=== PATIENT | female | born 1955 | race Caucasian/White ===

== ENCOUNTER 2021-07-07 18:59 | Emergency (ER) | payer MEDICARE, SELFPAY ==
[2021-07-07] VITALS (12 sets, daily range): BP systolic 139–193; BP diastolic 68–86; PULSE 80–115; RESP 15–34; TEMP 37; O2SAT 78–98; BMI 32.8
[2021-07-07 19:26] LABS: Add Manual Diff / Slide Review NO; Basophils Absolute Auto 100 /uL (0-100); Basophils Percent Auto 0.7 % (0-2); Eosinophils Absolute Auto 0 /uL (0-450); Eosinophils Percent Auto 0.3 % (2-4); Hematocrit 45.5 % (36-46); Hemoglobin 15.7 g/dL (12.0-16.0); Lymphocytes Absolute Auto 900 /uL (1100-4500); Lymphocytes Percent Auto 6.6 % (25-40); Mean Corpuscular HGB Conc 34.4 % (30-36); Mean Corpuscular Hemoglobin 30.7 PG (26-34); Mean Corpuscular Volume 89.1 fL (80-100); Monocytes Absolute Auto 600 /uL (0-900); Monocytes Percent Auto 4.3 % (3-14); Neutrophils Absolute Auto 11900 /uL (1500-7000); Neutrophils Percent Auto 88.1 % (50-75); Platelet Count 239 X10^3/uL (150-400); Red Blood Cell Count 5.11 X10^6/uL (4.0-5.2); Red Cell Distribution Width 13.1 % (11.6-14.8); White Blood Cell Count 13.5 X10^3/uL (4.5-11.0)
[2021-07-07] MEDS: ONDANSETRON 4 MG/2 ML INJ IV (19:38)
[2021-07-07] MEDS: SODIUM CHLORIDE 0.9% 1,000 ML 1000 ML IV ×2 (19:38→22:41)
[2021-07-07] MEDS: PANTOPRAZOLE 40 MG VIAL IV (19:40)
--- NOTE | 2021-07-07 19:41 | ED.ABDPAIN ---
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 She says it started around 3:00 a.m. but has progressively gotten worse. She is actively vomiting. She denies fever or chills. She denies any chest pain or palpitations no shortness of breath. Quite tender in her abdomen. Pain Consistency: constant Location: diffuse and RUQ Severity: severe Quality: sharp Relieving factors: nothing Related Data Allergies Allergy/AdvReac Type Severity Reaction Status Date / Time No Known Drug Allergies Allergy Verified 07/07/21 19:13 Review of Systems Review of Systems Narrative: GENERAL: Denies chills, fatigue, malaise, fever, sweats, travel HEENT: Denies sinus pain, ear pain, sore throat, difficulty swallowing, neck pain RESPIRATORY: Denies dyspnea, cough, wheezing, hemoptysis, sputum. CARDIOVASCULAR: Denies chest pain, palpitations, orthopnea, edema GASTROINTESTINAL: See HPI : Denies dysuria, frequency, incontinence, hematuria, urinary retention, flank pain. MUSCULOSKELETAL: Denies weakness, joint pain, or bony pain SKIN: No rash, no erythema, no pruritus NEUROLOGIC: Denies weakness, dizziness, headache, numbness, change in speech, confusion PSYCHIATRIC: No concerning psychosocial issues. 12 point review of systems is negative except for those stated above and HPI Patient History Social History Smoking Status: Never smoker Smoking Status: Never smoker Substance Use Type: does not use Exam Initial Vital Signs Initial Vital Signs: Vital Signs Temperature 98.6 F 07/07/21 19:05 Pulse Rate 80 07/07/21 19:05 Respiratory Rate 15 07/07/21 19:05 Blood Pressure 190/86 H 07/07/21 19:05 Pulse Oximetry 97 07/07/21 19:05 GENERAL: Alert 66-year-old female who is actively vomiting multiple times HEENT: Head atraumatic,EOMI, pupils reactive, face symmetric, moist mucous membranes CARDIOVASCULAR: Regular rate and rhythm without murmurs, rubs or gallops. RESPIRATORY: Breath sounds equal bilaterally, no wheezes rales or rhonchi. ABDOMEN: Soft, tender epigastric area and right upper quadrant area no guarding or rebound : No CVA tenderness EXTREMITIES: Normal range of motion, no clubbing or edema. Neurovascularly intact NEUROLOGICAL: Alert and oriented x4.Normal gait and speech. Course Orders Ordered: ED Orders 07/07/21 19:13 EKG-12 Lead Stat 07/07/21 19:19 Complete Blood Count AUTO DIFF Stat Comprehensive Metabolic Panel Stat Ketones (Beta-Hydroxybutyrate) Stat Lactate (Lactic Acid) Stat Lipase Stat 07/07/21 19:49 Urine Culture Stat Urine Microscopic Stat 07/07/21 19:59 CT abdomen pelvis w con Stat 07/07/21 20:00 US abdomen limited Stat 07/07/21 23:15 COVID19 -Nasal swab/Pre-Proc Stat 07/07/21 23:40 Blood Culture Stat Comprehensive Metabolic Panel Stat Lactate (Lactic Acid) Stat Procalcitonin Stat 07/08/21 EKG-12 Lead Routine Discontinued Medications Hydromorphone HCl (Hydromorphone 0.5 Mg Inj) 0.5 mg IV NOW ONE Stop: 07/07/21 22:22 Last Admin: 07/07/21 22:41 Dose: Not Given Documented by: KGALLAG Sodium Chloride (Normal Saline 0.9%) 1,000 mls @ 1,000 mls/hr IV BOLUS ONE Stop: 07/07/21 20:26 Last Infusion: 07/07/21 22:46 Dose: 0 mls/hr Documented by: Admin: 07/07/21 19:38 Dose: 1,000 mls/hr Documented by: FREDYOTEM Sodium Chloride (Normal Saline 0.9%) 1,000 mls @ 1,000 mls/hr IV BOLUS ONE Stop: 07/07/21 23:18 Last Infusion: 07/08/21 00:19 Dose: 0 mls/hr Documented by: Admin: 07/07/21 22:41 Dose: 1,000 mls/hr Documented by: KGALLAG Piperacillin Sod/Tazobactam (Sod 4.5 gm/ Sodium Chloride) 100 mls @ 200 mls/hr IV NOW ONE Stop: 07/07/21 22:20 Last Infusion: 07/07/21 23:28 Dose: 0 mls/hr Documented by: Admin: 07/07/21 22:41 Dose: 200 mls/hr Documented by: CEZAR Sodium Chloride (Normal Saline 0.9%) 1,000 mls @ 1,000 mls/hr IV BOLUS ONE Stop: 07/07/21 23:28 Last Admin: 07/07/21 22:45 Dose: Not Given Documented by: CEZAR Lactated Ringer's (Lactated Ringers) 1,000 mls @ 250 mls/hr IV CONT NEIL Last Infusion: 07/08/21 02:18 Dose: 0 mls/hr Documented by: Admin: 07/08/21 00:18 Dose: 250 mls/hr Documented by: CEZAR Ketorolac Tromethamine (Ketorolac 30 Mg/Ml Vial) 15 mg IV NOW ONE Stop: 07/08/21 00:26 Last Admin: 07/08/21 00:29 Dose: 15 mg Documented by: CEZAR Morphine Sulfate (Morphine 2 Mg/Ml Inj) 2 mg IV NOW ONE Stop: 07/07/21 19:59 Last Admin: 07/07/21 20:04 Dose: 2 mg Documented by: CEZAR Morphine Sulfate (Morphine 2 Mg/Ml Inj) 2 mg IV NOW ONE Stop: 07/07/21 22:30 Last Admin: 07/07/21 22:40 Dose: 2 mg Documented by: CEZAR Ondansetron HCl (Ondansetron 4 Mg/2 Ml Inj) 4 mg IV NOW ONE Stop: 07/07/21 19:28 Last Admin: 07/07/21 19:38 Dose: 4 mg Documented by: ARIES Pantoprazole Sodium (Pantoprazole 40 Mg Vial) 40 mg IV NOW ONE Stop: 07/07/21 19:28 Last Admin: 07/07/21 19:40 Dose: 40 mg Documented by: CEZAR Vital Signs Vital signs: Vital Signs - 8 hr 07/07/21 19:05 07/07/21 20:05 07/07/21 20:10 Temperature 98.6 F Pulse Rate 80 97 H 97 H Respiratory Rate 15 18 22 Blood Pressure 190/86 H 180/78 H Pulse Oximetry 97 98 78 L 07/07/21 20:30 07/07/21 20:32 07/07/21 21:00 Temperature Pulse Rate 102 H 101 H 102 H Respiratory Rate 26 H 29 H Blood Pressure 139/78 154/68 H Pulse Oximetry 95 95 95 07/07/21 21:30 07/07/21 22:00 07/07/21 22:30 Temperature Pulse Rate 109 H 109 H 115 H Respiratory Rate 26 H 31 H 34 H Blood Pressure 171/75 H 193/79 H 185/76 H Pulse Oximetry 95 93 91 07/07/21 23:00 07/07/21 23:20 07/07/21 23:30 Temperature Pulse Rate 114 H 115 H Respiratory Rate 34 H 33 H Blood Pressure 188/76 H 185/79 H Pulse Oximetry 93 88 L 95 07/08/21 00:00 07/08/21 00:29 07/08/21 00:30 Temperature 101.3 F H Pulse Rate 126 H 114 H Respiratory Rate 31 H 33 H Blood Pressure 194/93 H 180/80 H Pulse Oximetry 96 95 07/08/21 01:00 07/08/21 01:30 07/08/21 01:38 Temperature 100.8 F H 99.8 F H Pulse Rate 123 H 122 H Respiratory Rate 29 H 27 H Blood Pressure 154/65 H 142/65 H Pulse Oximetry 94 93 07/08/21 02:00 Temperature Pulse Rate 118 H Respiratory Rate 24 Blood Pressure 131/60 Pulse Oximetry 92 MDM - Abdominal Pain Lab Data Result diagrams: 07/07/21 19:19 07/07/21 23:40 Labs: Lab Results 07/07/21 07/07/21 07/07/21 Range/Units 19:19 19:19 19:19 WBC 13.5 H (4.5-11.0) X10^3/uL RBC 5.11 (4.0-5.2) X10^6/uL Hgb 15.7 (12.0-16.0) g/dL Hct 45.5 (36-46) % MCV 89.1 (80-100) fL MCH 30.7 (26-34) PG MCHC 34.4 (30-36) % RDW 13.1 (11.6-14.8) % Plt Count 239 (150-400) X10^3/uL Neut % (Auto) 88.1 H (50-75) % Lymph % (Auto) 6.6 L (25-40) % [place] % (Auto) 4.3 (3-14) % Eos % (Auto) 0.3 L (2-4) % Baso % (Auto) 0.7 (0-2) % Neut # (Auto) 17720 H (2794-0655) /uL Lymph # (Auto) 900 L (7300-9354) /uL [place] # (Auto) 600 (0-900) /uL Eos # (Auto) 0 (0-450) /uL Baso # (Auto) 100 (0-100) /uL Sodium 137 (137-145) mmol/L Potassium 4.3 (3.4-5.1) mmol/L Chloride 99 (98-107) mmol/L Carbon Dioxide 29 (22-32) mmol/L BUN 11 (7-17) mg/dL Creatinine 0.77 (0.52-1.04) mg/dL Estimated GFR > 60.0 (>60) mL/min BUN/Creatinine Ratio 14.3 (6-22) Glucose 210 H (80-110) mg/dL Lactate 1.5 (0.7-2.1) mmol/L Calcium 9.8 (8.4-10.2) mg/dL Total Bilirubin 2.1 H (0.2-1.3) mg/dL AST 356 H (14-36) IU/L ALT 202 H (<35) IU/L Alkaline Phosphatase 324 H (38-126) U/L Total Protein 8.9 H (6.3-8.2) g/dL Albumin 4.7 (3.5-5.0) g/dL Globulin 4.2 H (1.7-4.1) g/dL Albumin/Globulin Ratio 1.1 (1.0-2.8) Lipase 149 (23-300) U/L Procalcitonin (<0.5) ng/mL Urine RBC (0-5/HPF) Urine WBC (0-5/HPF) Ur Squamous Epith Cells (0-5/HPF) Ur Transition Epith Cell (0-5/HPF) Urine Bacteria (None) Ur Culture Indicated? Micro UA Comment Ketones (<0.27) mmol/L SARS-CoV-2 (PCR) (Negative) 07/07/21 07/07/21 07/07/21 Range/Units 19:19 19:49 23:15 WBC (4.5-11.0) X10^3/uL RBC (4.0-5.2) X10^6/uL Hgb (12.0-16.0) g/dL Hct (36-46) % MCV (80-100) fL MCH (26-34) PG MCHC (30-36) % RDW (11.6-14.8) % Plt Count (150-400) X10^3/uL Neut % (Auto) (50-75) % Lymph % (Auto) (25-40) % [place] % (Auto) (3-14) % Eos % (Auto) (2-4) % Baso % (Auto) (0-2) % Neut # (Auto) (3952-1933) /uL Lymph # (Auto) (7993-9035) /uL [place] # (Auto) (0-900) /uL Eos # (Auto) (0-450) /uL Baso # (Auto) (0-100) /uL Sodium (137-145) mmol/L Potassium (3.4-5.1) mmol/L Chloride (98-107) mmol/L Carbon Dioxide (22-32) mmol/L BUN (7-17) mg/dL Creatinine (0.52-1.04) mg/dL Estimated GFR (>60) mL/min BUN/Creatinine Ratio (6-22) Glucose (80-110) mg/dL Lactate (0.7-2.1) mmol/L Calcium (8.4-10.2) mg/dL Total Bilirubin (0.2-1.3) mg/dL AST (14-36) IU/L ALT (<35) IU/L Alkaline Phosphatase (38-126) U/L Total Protein (6.3-8.2) g/dL Albumin (3.5-5.0) g/dL Globulin (1.7-4.1) g/dL Albumin/Globulin Ratio (1.0-2.8) Lipase (23-300) U/L Procalcitonin (<0.5) ng/mL Urine RBC 0-1/hpf (0-5/HPF) Urine WBC 10-30/hpf H (0-5/HPF) Ur Squamous Epith Cells 1-5 /hpf (0-5/HPF) Ur Transition Epith Cell 5-10/hpf H (0-5/HPF) Urine Bacteria Many (>30) H (None) Ur Culture Indicated? Culture not indicate Micro UA Comment Cx ordered by Ketones 0.91 H (<0.27) mmol/L SARS-CoV-2 (PCR) Negative (Negative) 07/07/21 07/07/21 07/07/21 Range/Units 23:40 23:40 23:40 WBC (4.5-11.0) X10^3/uL RBC (4.0-5.2) X10^6/uL Hgb (12.0-16.0) g/dL Hct (36-46) % MCV (80-100) fL MCH (26-34) PG MCHC (30-36) % RDW (11.6-14.8) % Plt Count (150-400) X10^3/uL Neut % (Auto) (50-75) % Lymph % (Auto) (25-40) % [place] % (Auto) (3-14) % Eos % (Auto) (2-4) % Baso % (Auto) (0-2) % Neut # (Auto) (4590-9373) /uL Lymph # (Auto) (6932-5714) /uL [place] # (Auto) (0-900) /uL Eos # (Auto) (0-450) /uL Baso # (Auto) (0-100) /uL Sodium 134 L (137-145) mmol/L Potassium 3.8 (3.4-5.1) mmol/L Chloride 100 (98-107) mmol/L Carbon Dioxide 25 (22-32) mmol/L BUN 9 (7-17) mg/dL Creatinine 0.70 (0.52-1.04) mg/dL Estimated GFR > 60.0 (>60) mL/min BUN/Creatinine Ratio 12.9 (6-22) Glucose 246 H (80-110) mg/dL Lactate 2.0 (0.7-2.1) mmol/L Calcium 8.7 (8.4-10.2) mg/dL Total Bilirubin 3.5 H (0.2-1.3) mg/dL AST 541 H (14-36) IU/L ALT 267 H (<35) IU/L Alkaline Phosphatase 353 H (38-126) U/L Total Protein 7.6 (6.3-8.2) g/dL Albumin 4.1 (3.5-5.0) g/dL Globulin 3.5 (1.7-4.1) g/dL Albumin/Globulin Ratio 1.2 (1.0-2.8) Lipase (23-300) U/L Procalcitonin 2.60 H (<0.5) ng/mL Urine RBC (0-5/HPF) Urine WBC (0-5/HPF) Ur Squamous Epith Cells (0-5/HPF) Ur Transition Epith Cell (0-5/HPF) Urine Bacteria (None) Ur Culture Indicated? Micro UA Comment Ketones (<0.27) mmol/L SARS-CoV-2 (PCR) (Negative) Point of care testing: Point of Care Testing Glucose POC 180 Urine Dip Bedside Urine Glucose 100 mg/dl Bedside Urine Bilirubin - Negative Bedside Urine Ketone ++ 40 Urine Specific [place] 1.020 Bedside Urine Occult Blood +/- Bedside Urine pH 6 Bedside Urine Protein + 30 Bedside Urine Urobilinogen 2+ 4mg Bedside Urine Nitrite - Negative Bedside Urine Leukocytes + 70 Esterase Imaging Data US - abdomen: Radiologist's Impression: PROCEDURE:? US ABDOMEN LIMITED ? INDICATIONS:? ruq ? TECHNIQUE:? Real-time scanning was performed of the right upper quadrant, with image documentation.? ? COMPARISON:? [facility], CT, CT ABDOMEN PELVIS W CON, 07/07/2021, 20:25. ? FINDINGS:? ? Liver:? Prominent size.? Increased in echogenicity. ? Gallbladder:? Distended.? Multiple gallstones. Normal gallbladder wall thickness. No pericholecystic fluid. Negative sonographic Garcia's sign.? ? Biliary ducts:? Mildly dilated intrahepatic bile duct is seen in the left lobe measuring 0.3 cm.? CBD measures 1.3 cm. CHD measures 0.7 cm.? Suboptimal visualization due to bowel gas.? ? Pancreas:? Visualized portions of the pancreas are sonographically normal.? Tail is not well seen. ? Miscellaneous:? No free abdominal fluid.? ? ? IMPRESSION:? ? 1. Distended gallbladder.? Multiple gallstones.? No gallbladder wall thickening or sonographic Garcia's sign to suggest acute cholecystitis. ? 2. Biliary ductal dilatation.? Consider further evaluation with MRCP. ? 3. Hepatomegaly.? Increased hepatic echogenicity most consistent with hepatic steatosis. Other forms of hepatocellular disease could have similar appearance. ? ? ? Dictated by: Sid Rocha M.D. on 07/07/2021 at 22:36 ? ? Approved by: Sid Rocha M.D. on 07/07/2021 at 22:40 ? CT scan - abdomen/pelvis: Radiologist's Impression: PROCEDURE:? CT ABDOMEN PELVIS W CON ? INDICATIONS:? abdominal pain ? TECHNIQUE:? After the administration of oral and IV contrast, axial sections were acquired from the lung bases to the pubic symphysis.? Coronal and sagittal reformats were performed.? For radiation dose reduction, the following was used:? automated exposure control, adjustment of mA and/or kV according to patient size. ? COMPARISON:? [facility], , ABDOMEN LIMITED, 07/07/2021, 20:50. ? FINDINGS:? Image quality:? Excellent.? ? Lung bases:? Unremarkable.? ? Heart:? No significant findings.? Small hiatal hernia. ? ? ABDOMEN: Liver:? Unremarkable.? ? Gallbladder:? Distended.? Several gallstones.? ? Biliary ducts:? CBD measures 1 cm, ().? Mild prominence of the intrahepatic bile ducts.? ? Pancreas:? Unremarkable.? ? Spleen:? Unremarkable.? ? Adrenal Glands:? Unremarkable.? ? Kidneys and Ureters:? No hydronephrosis.? ? ? Stomach and Bowel:? Stomach, small bowel loops, and colon are unremarkable.? The appendix is not seen. Peritoneum:? No abnormal intraperitoneal fluid.? No free air.? ? Ventral Wall: ? No hernia.? Abdominal Nodes:? No retroperitoneal or mesenteric adenopathy by size criteria.? Vessels:? Aorta and inferior vena cava are normal in size.? ? PELVIS: Pelvic Organs:? Anteverted uterus.? Anterior mid uterine heterogeneous mass measuring 4.1 cm.? This could represent a large fibroid.? ? Bladder:? Unremarkable.? ? Pelvic Nodes: No enlarged lymph nodes.? Miscellaneous: No inguinal hernias are seen. ? ? ? Bones:? No compression fracture. ? ? IMPRESSION:? 1. Distended gallbladder.? Cholelithiasis. ? 2. Mild biliary ductal dilatation.? -Consider further evaluation of the bile ducts with MRCP. ? 3. Suspect anterior mid uterine fibroid measuring 4.1 cm. -This could be further evaluated with pelvic ultrasound. ? 4. Small hiatal hernia. ? ? ? Dictated by: Sid Rocha M.D. on 07/07/2021 at 22:01 ? ? ECG Data Interpretation: EKG 1. Sinus rhythm rate 91 RI interval [address] changes no T-wave inversion EKG 2. Sinus tachycardia rate [address] changes no Q-waves no sways no T-wave inversions or ischemia MDM Narrative Medical decision making narrative: The patient is quite tender Zofran seems to help with her nausea. There is no anion gap she certainly is not in DKA. Normal lactic acid very mild ketones. Liver enzymes and bilirubin is are elevated. Probable choledocholithiasis with an elevated common bile duct noted on both CT and ultrasound. No evidence of acute cholecystitis although she does have leukocytosis and is afebrile. Patient's pain is very easily controlled with 2 mg of morphine. She is sleeping but easily arousable. She does require 1-2 L of oxygen. While in the ED her heart rate is noted to increase despite 2 L of IV fluids and pain medication Repeat work shows increasing bilirubin and liver enzymes along with lactic acid which went from 1.5-2.0. She is remaining hypertensive she is not hypotensive. She actually is found to have fever of 101. Has blood cultures pending and is given a dose of Zosyn. I suspect that patient has developing cholecystitis and possible sepsis. Heart rate improving as fever improves. 2330 Dr. [place], GI at [facility], updated patient's test results signs and symptoms this point agrees that patient probably will need an ERCP and is happy to consult if patient is transferred. Have expressed my concerns with abnormal vitals that patient may be deteriorating. He agrees. [id number]. Gurrola, hospitalist at [facility] has been updated on patient's symptoms test results in GI. I have included the change in vitals and repeat blood work at this time is still pending. Critical Care Time Critical Care Time Critical Care Time: Yes Total Critical Care Time: 45 Attestation: The high probability of a clinically significant, sudden or life threatening deterioration of the [cardiovascular] system(s) required my full and direct attention, intervention and personal management. The aggregate critical care time was [45] minutes. This time is in addition to time spent performing reported procedures but includes the following: [x] Data Review and interpretation [x] Patient assessment and monitoring of vital signs [x] Documentation [x] Medication orders and management Discharge Plan Departure Patient Disposition: [facility] Clinical Impression: Choledocholithiasis with acute cholecystitis with obstruction
[2021-07-07 19:46] LABS: Alanine Aminotransferase 202 IU/L (<35); Albumin 4.7 g/dL (3.5-5.0); Albumin Globulin Ratio 1.1 (1.0-2.8); Alkaline Phosphatase 324 U/L (38-126); Aspartate Aminotransferase 356 IU/L (14-36); BUN Creatinine Ratio 14.3 (6-22); Bilirubin Total 2.1 mg/dL (0.2-1.3); Blood Urea Nitrogen 11 mg/dL (7-17); Calcium 9.8 mg/dL (8.4-10.2); Carbon Dioxide 29 mmol/L (22-32); Chloride 99 mmol/L (98-107); Estimated Glomerular Filt Rate > 60.0 mL/min (>60); Globulin 4.2 g/dL (1.7-4.1); Glucose 210 mg/dL (80-110); Lipase 149 U/L (23-300); Sodium 137 mmol/L (137-145); Total Protein 8.9 g/dL (6.3-8.2)
[2021-07-07 19:56] LABS: Lactate (Lactic Acid) 1.5 mmol/L (0.7-2.1)
[2021-07-07 19:57] LABS: HEMOLYSIS 67 (0-50)
[2021-07-07 19:58] LABS: Potassium 4.3 mmol/L (3.4-5.1)
--- NOTE | 2021-07-07 19:59 | DI.CT.S_ITS ---
PROCEDURE: CT ABDOMEN PELVIS W CON INDICATIONS: abdominal pain TECHNIQUE: After the administration of oral and IV contrast, axial sections were acquired from the lung bases to the pubic symphysis. Coronal and sagittal reformats were performed. For radiation dose reduction, the following was used: automated exposure control, adjustment of mA and/or kV according to patient size. COMPARISON: [facility], , US ABDOMEN LIMITED, 07/07/2021, 20:50. FINDINGS: Image quality: Excellent. Lung bases: Unremarkable. Heart: No significant findings. Small hiatal hernia. ABDOMEN: Liver: Unremarkable. Gallbladder: Distended. Several gallstones. Biliary ducts: CBD measures 1 cm, (4/32). Mild prominence of the intrahepatic bile ducts. Pancreas: Unremarkable. Spleen: Unremarkable. Adrenal Glands: Unremarkable. Kidneys and Ureters: No hydronephrosis. Stomach and Bowel: Stomach, small bowel loops, and colon are unremarkable. The appendix is not seen. Peritoneum: No abnormal intraperitoneal fluid. No free air. Ventral Wall: No hernia. Abdominal Nodes: No retroperitoneal or mesenteric adenopathy by size criteria. Vessels: Aorta and inferior vena cava are normal in size. PELVIS: Pelvic Organs: Anteverted uterus. Anterior mid uterine heterogeneous mass measuring 4.1 cm. This could represent a large fibroid. Bladder: Unremarkable. Pelvic Nodes: No enlarged lymph nodes. Miscellaneous: No inguinal hernias are seen. Bones: No compression fracture. IMPRESSION: 1. Distended gallbladder. Cholelithiasis. 2. Mild biliary ductal dilatation. -Consider further evaluation of the bile ducts with MRCP. 3. Suspect anterior mid uterine fibroid measuring 4.1 cm. -This could be further evaluated with pelvic ultrasound. 4. Small hiatal hernia. Dictated by: Sid Rocha M.D. on 07/07/2021 at 22:01 Approved by: Sid Rocha M.D. on 07/07/2021 at 22:09
--- NOTE | 2021-07-07 20:00 | DI.US.S_ITS ---
PROCEDURE: US ABDOMEN LIMITED INDICATIONS: ruq TECHNIQUE: Real-time scanning was performed of the right upper quadrant, with image documentation. COMPARISON: [facility], CT, CT ABDOMEN PELVIS W CON, 07/07/2021, 20:25. FINDINGS: Liver: Prominent size. Increased in echogenicity. Gallbladder: Distended. Multiple gallstones. Normal gallbladder wall thickness. No pericholecystic fluid. Negative sonographic Garcia's sign. Biliary ducts: Mildly dilated intrahepatic bile duct is seen in the left lobe measuring 0.3 cm. CBD measures 1.3 cm. CHD measures 0.7 cm. Suboptimal visualization due to bowel gas. Pancreas: Visualized portions of the pancreas are sonographically normal. Tail is not well seen. Miscellaneous: No free abdominal fluid. IMPRESSION: 1. Distended gallbladder. Multiple gallstones. No gallbladder wall thickening or sonographic Garcia's sign to suggest acute cholecystitis. 2. Biliary ductal dilatation. Consider further evaluation with MRCP. 3. Hepatomegaly. Increased hepatic echogenicity most consistent with hepatic steatosis. Other forms of hepatocellular disease could have similar appearance. Dictated by: Sid Rocha M.D. on 07/07/2021 at 22:36 Approved by: Sid Rocha M.D. on 07/07/2021 at 22:40
[2021-07-07 20:03] LABS: RBC Urine 0-1/HPF (0-5/HPF); Squamous Epithelial Cell Urine 1-5 /HPF (0-5/HPF); Transitional Epi Cells Urine 5-10/HPF (0-5/HPF); WBC Urine 10-30/HPF (0-5/HPF)
[2021-07-07 20:04] LABS: Bacteria Urine Many (>30)
[2021-07-07] MEDS: MORPHINE 2 MG/ML INJ IV ×2 (20:04→22:40)
[2021-07-07 20:41] LABS: Ketones (Beta-Hydroxybutyrate) 0.91 mmol/L (<0.27)
[2021-07-07] MEDS: PIPERACILLIN/TAZO 4.5 GM in SODIUM CHLORIDE 0.9% 100 ML 200 ML IV (22:41)
[2021-07-07 23:35] LABS: COVID19 -Nasal RAPID Negative (Negative)
[2021-07-08] VITALS (7 sets, daily range): BP systolic 131–194; BP diastolic 60–93; PULSE 114–126; RESP 24–33; TEMP 37.7–38.5; O2SAT 92–96
[2021-07-08 00:08] LABS: Alanine Aminotransferase 267 IU/L (<35); Albumin 4.1 g/dL (3.5-5.0); Albumin Globulin Ratio 1.2 (1.0-2.8); Alkaline Phosphatase 353 U/L (38-126); Aspartate Aminotransferase 541 IU/L (14-36); BUN Creatinine Ratio 12.9 (6-22); Bilirubin Total 3.5 mg/dL (0.2-1.3); Blood Urea Nitrogen 9 mg/dL (7-17); Calcium 8.7 mg/dL (8.4-10.2); Carbon Dioxide 25 mmol/L (22-32); Chloride 100 mmol/L (98-107); Estimated Glomerular Filt Rate > 60.0 mL/min (>60); Globulin 3.5 g/dL (1.7-4.1); Glucose 246 mg/dL (80-110); HEMOLYSIS < 15 (0-50); Potassium 3.8 mmol/L (3.4-5.1); Sodium 134 mmol/L (137-145); Total Protein 7.6 g/dL (6.3-8.2)
[2021-07-08] MEDS: LACTATED RINGERS 1,000 ML 250 ML IV (00:18)
[2021-07-08] MEDS: KETOROLAC 30 MG/ML VIAL 15 MG IV (00:29)
--- NOTE | 2021-07-08 00:30 | PC.NURSE ---
Only one set of blood cultures obtained, ordered after ABX administration. Dr Smith made aware Pt also now spiking a fever. Dr Smith aware
== END 2021-07-08 02:19 | disposition short-term general hospital (02) ==
PROVIDERS: Emergency Provider Emergency Medicine
DX: K80.43 Calculus of bile duct with acute cholecystitis with obstruction (principal); Z20.822 Contact with and (suspected) exposure to COVID-19
CPT/HCPCS: 36415; 74177; 76705; 80053; 81003; 81015; 82009; 82962; 83605; 83690; 84145; 85025; 87040; 87077; 87086; 87186; 87635; 93005; 96361; 96365; 96375; 96376; 99285; 99291; C9803; C9113; J1885; J2270; J2405; J2543

== ENCOUNTER → 2021-12-21 08:59 | Outpatient (CLI) | payer MEDICARE, SELFPAY ==
[2021-12-21 10:20] LABS: Add Manual Diff / Slide Review NO; Basophils Absolute Auto 100 /uL (0-100); Basophils Percent Auto 0.9 % (0-2); Eosinophils Absolute Auto 400 /uL (0-450); Eosinophils Percent Auto 5.2 % (2-4); Hematocrit 42.3 % (36-46); Hemoglobin 14.2 g/dL (12.0-16.0); Lymphocytes Absolute Auto 1800 /uL (1100-4500); Lymphocytes Percent Auto 22.3 % (25-40); Mean Corpuscular HGB Conc 33.4 % (30-36); Mean Corpuscular Hemoglobin 30.1 PG (26-34); Monocytes Absolute Auto 600 /uL (0-900); Monocytes Percent Auto 8.1 % (3-14); Neutrophils Absolute Auto 5000 /uL (1500-7000); Neutrophils Percent Auto 63.5 % (50-75); Platelet Count 255 X10^3/uL (150-400); Red Cell Distribution Width 13.3 % (11.6-14.8); White Blood Cell Count 7.9 X10^3/uL (4.5-11.0)
[2021-12-21 10:30] LABS: Hemoglobin A1C% w Est Avg Glu 11.5 % (4.0-6.0)
[2021-12-21 11:02] LABS: Alanine Aminotransferase 39 IU/L (<35); Albumin 4.2 g/dL (3.5-5.0); Albumin Globulin Ratio 1.3 (1.0-2.8); Alkaline Phosphatase 158 U/L (38-126); Aspartate Aminotransferase 37 IU/L (14-36); BUN Creatinine Ratio 16.9 (6-22); Bilirubin Total 0.5 mg/dL (0.2-1.3); Blood Urea Nitrogen 14 mg/dL (7-17); Calcium 9.5 mg/dL (8.4-10.2); Carbon Dioxide 27 mmol/L (22-32); Chloride 106 mmol/L (98-107); Cholesterol 219 mg/dL (140-199); Estimated Glomerular Filt Rate > 60 mL/min (>60); Globulin 3.3 g/dL (1.7-4.1); Glucose 237 mg/dL (80-110); HDL Cholesterol 47 mg/dL (40-60); HEMOLYSIS < 15 (0-50); LDL Cholesterol Calculated 140 mg/dL (<100); Potassium 4.7 mmol/L (3.4-5.1); Sodium 142 mmol/L (137-145); Total Protein 7.5 g/dL (6.3-8.2); Triglycerides 159 mg/dL (35-150); Uric Acid 5.2 mg/dL (2.5-6.2)
[2021-12-21 11:05] LABS: Free T4, Direct Thyroxine 1.33 ng/dL (0.78-2.19)
[2021-12-21 11:18] LABS: Thyroid Stimulating Hormone 1.33 uIU/mL (0.47-4.68)
[2021-12-21 11:41] LABS: Vitamin B12 > 1000 pg/mL (239-931)
== END ==
PROVIDERS: PCP Internal Medicine; Referring Provider Internal Medicine; Visit Provider Internal Medicine
DX: E03.9 Hypothyroidism, unspecified (principal); E11.9 Type 2 diabetes mellitus without complications; D51.0 Vitamin B12 deficiency anemia due to intrinsic factor deficiency; E78.2 Mixed hyperlipidemia; M1A.9XX0 Chronic gout, unspecified, without tophus (tophi); Z79.4 Long term (current) use of insulin
CPT/HCPCS: 36415; 80053; 80061; 82607; 83036; 84439; 84443; 84550; 85025

== ENCOUNTER → 2022-04-17 09:39 | Outpatient (CLI) | payer MEDICARE, SELFPAY ==
[2022-04-17 10:52] LABS: Hemoglobin A1C% w Est Avg Glu 9.2 % (4.0-6.0)
[2022-04-17 11:11] LABS: BUN Creatinine Ratio 17.6 (6-22); Blood Urea Nitrogen 16 mg/dL (7-17); Calcium 9.5 mg/dL (8.4-10.2); Carbon Dioxide 29 mmol/L (22-32); Chloride 103 mmol/L (98-107); Estimated Glomerular Filt Rate > 60 mL/min (>60); Glucose 190 mg/dL (80-110); HEMOLYSIS < 15 (0-50); Sodium 139 mmol/L (137-145)
== END ==
PROVIDERS: PCP Internal Medicine; Referring Provider Internal Medicine; Visit Provider Internal Medicine
DX: E11.9 Type 2 diabetes mellitus without complications (principal); Z79.4 Long term (current) use of insulin
CPT/HCPCS: 36415; 80048; 83036

== ENCOUNTER → 2022-11-27 10:53 | Outpatient (CLI) | payer MEDICARE, SELFPAY ==
[2022-11-27 11:53] LABS: Add Manual Diff / Slide Review NO; Basophils Absolute Auto 100 /uL (0-100); Basophils Percent Auto 0.8 % (0-2); Eosinophils Absolute Auto 400 /uL (0-450); Hematocrit 41.1 % (36-46); Hemoglobin 13.8 g/dL (12.0-16.0); Lymphocytes Absolute Auto 1800 /uL (1100-4500); Mean Corpuscular HGB Conc 33.4 % (30-36); Mean Corpuscular Hemoglobin 30.5 PG (26-34); Mean Corpuscular Volume 91.3 fL (80-100); Monocytes Absolute Auto 600 /uL (0-900); Monocytes Percent Auto 7.5 % (3-14); Neutrophils Absolute Auto 5300 /uL (1500-7000); Neutrophils Percent Auto 64.7 % (50-75); Platelet Count 273 X10^3/uL (150-400); Red Cell Distribution Width 12.3 % (11.6-14.8); White Blood Cell Count 8.2 X10^3/uL (4.5-11.0)
[2022-11-27 11:55] LABS: Hemoglobin A1C% w Est Avg Glu 8.8 % (4.0-6.0)
[2022-11-27 12:00] LABS: Alanine Aminotransferase 22 IU/L (<35); Albumin 4.1 g/dL (3.5-5.0); Albumin Globulin Ratio 1.1 (1.0-2.8); Alkaline Phosphatase 121 U/L (38-126); Aspartate Aminotransferase 31 IU/L (14-36); BUN Creatinine Ratio 17.7 (6-22); Bilirubin Total 0.6 mg/dL (0.2-1.3); Blood Urea Nitrogen 14 mg/dL (7-17); Calcium 9.1 mg/dL (8.4-10.2); Carbon Dioxide 29 mmol/L (22-32); Chloride 104 mmol/L (98-107); Cholesterol 225 mg/dL (140-199); Estimated Glomerular Filt Rate > 60 mL/min (>60); Globulin 3.8 g/dL (1.7-4.1); Glucose 158 mg/dL (80-110); HDL Cholesterol 36 mg/dL (40-60); HEMOLYSIS 20 (0-50); LDL Cholesterol Calculated 154 mg/dL (<100); Potassium 4.1 mmol/L (3.4-5.1); Sodium 140 mmol/L (137-145); Total Protein 7.9 g/dL (6.3-8.2); Triglycerides 177 mg/dL (35-150)
[2022-11-27 12:23] LABS: Microalbumi Creatinin Ratio Ur 40.4 ug/mg CR (<30); Microalbumin Urine Random 4.9 mg/dL (0-1.6)
[2022-11-27 12:26] LABS: TSH w/ Reflex to FT4 0.27 uIU/mL (0.47-4.68)
[2022-11-27 12:50] LABS: Free T4, Direct Thyroxine 1.87 ng/dL (0.78-2.19)
== END ==
PROVIDERS: PCP Internal Medicine; Referring Provider Internal Medicine; Visit Provider Internal Medicine
DX: E03.9 Hypothyroidism, unspecified (principal); E11.65 Type 2 diabetes mellitus with hyperglycemia; E78.2 Mixed hyperlipidemia; Z79.4 Long term (current) use of insulin
CPT/HCPCS: 36415; 80053; 80061; 82043; 82570; 83036; 84439; 84443; 85025

== ENCOUNTER → 2022-12-04 14:30 | Outpatient (CLI) | payer MEDICARE, SELFPAY ==
--- NOTE | 2022-12-04 14:31 | DI.MG.S_ITS ---
BILATERAL DIGITAL SCREENING MAMMOGRAM 3D/2D WITH CAD: 12/04/2022 CLINICAL: Routine screening. Baseline exam. Family history of breast cancer. No prior exams were available for comparison. There are scattered areas of fibroglandular density in both breasts (category b / 25%-50% glandular tissue). Current study was also evaluated with a Computer Aided Detection (CAD) system. There are benign vascular calcifications in both breasts. No significant masses, calcifications, or other findings are seen in either breast. IMPRESSION: BENIGN There is no mammographic evidence of malignancy. A 1 year screening mammogram is recommended. Based on the Tyrer Cuzick model (a risk assessment model) the patient's lifetime risk is 6.0% and her 10 year risk is 3.3%. According to the ACR, ACS, and NCCN guidelines, an annual breast MRI exam along with mammogram is recommended if the patient's lifetime risk is 20% or greater. This exam was interpreted at Station ID: [id number]. NOTE: For mammograms, a report in lay terms will be sent to the patient. Approximately 15% of breast malignancies will not be visualized mammographically. In the management of a palpable breast mass, a negative mammogram must not discourage biopsy of a clinically suspicious lesion. Electronically Signed By: Sid baum/charley:12/04/2022 15:49:40 letter sent: Normal Exam ACR BI-RADS Category 2: Benign Finding(s) [id number]
== END ==
PROVIDERS: PCP Internal Medicine; Referring Provider Internal Medicine; Visit Provider Internal Medicine
DX: Z12.31 Encounter for screening mammogram for malignant neoplasm of breast (principal); Z80.3 Family history of malignant neoplasm of breast
CPT/HCPCS: 77063; 77067

== ENCOUNTER → 2023-02-26 10:26 | Outpatient (CLI) | payer MEDICARE, SELFPAY ==
[2023-02-26 12:17] LABS: BUN Creatinine Ratio 15.7 (6-22); Blood Urea Nitrogen 14 mg/dL (7-17); Calcium 9.2 mg/dL (8.4-10.2); Carbon Dioxide 28 mmol/L (22-32); Chloride 101 mmol/L (98-107); Estimated Glomerular Filt Rate > 60 mL/min (>60); Glucose 157 mg/dL (80-110); HEMOLYSIS < 15 (0-50); Potassium 4.3 mmol/L (3.4-5.1); Sodium 138 mmol/L (137-145)
[2023-02-27 11:16] LABS: x Labcorp Estim. Avg Glu (eAG) 214 mg/dL (.); x Labcorp Hemoglobin A1c 9.1 % (4.8-5.6)
== END ==
PROVIDERS: PCP Internal Medicine; Referring Provider Internal Medicine; Visit Provider Internal Medicine
DX: E78.2 Mixed hyperlipidemia (principal); Z79.4 Long term (current) use of insulin; E11.9 Type 2 diabetes mellitus without complications
CPT/HCPCS: 36415; 80048; 83036

== ENCOUNTER 2023-03-14 08:19 | Day surgery (SDC) | payer MEDICARE, SELFPAY ==
[2023-03-14] MEDS: LACTATED RINGERS 1,000 ML 42 ML IV (08:34)
[2023-03-14 08:44] VITALS: BP 145/78; PULSE 74; RESP 20; TEMP 36.6; O2SAT 97; BMI 32.5
--- NOTE | 2023-03-14 09:13 | P.HP_ITS ---
History of Present Illness History of Present Illness Date Patient Seen: 03/14/23 Time Patient Seen: 09:13 Chief complaint: [facility] [place] Narrative: Vera is a 68-year-old woman who is here for colonoscopy. Her last was about 10 years ago and she thinks 2 small polyps were removed. She has no family history of colon cancer. [facility] Medical History (Updated 03/14/23 @ 09:14 by Kris Gipson MD) Acquired hypothyroidism (~2004) Anemia (~1983) B12 deficiency Chicken pox (~1961) Chronic gout Chronic renal failure, stage 3a Colon polyps (~2011) Gait disorder GERD without esophagitis Hearing loss (~2017) Hepatitis C antibody test positive (~1984) History of adenomatous polyp of colon Insulin dependent type 2 diabetes mellitus, controlled Measles (~1956) Mixed hyperlipidemia Mumps (~1959) Peripheral edema Peripheral polyneuropathy Pernicious anemia Pulmonary nodule, left Vision disorder Surgical History (Updated 12/27/21 @ 21:47 by Maci Coronado) Anesthesia S/P appy (~1972) S/P cholecystectomy (~2020) Family History (Updated 12/27/21 @ 21:51 by Maci Coronado) Father History of heart disease Mother Mental health problem Brother Multiple sclerosis Grandfather Diabetes mellitus History of heart disease Hypertension Hyperlipidemia Grandmother Breast cancer Brain cancer Family/Other Multiple sclerosis Social History household members: family Smoking Status: Never smoker alcohol intake: never Meds Home Medications and Allergies Home Medications Medication Instructions Recorded Confirmed Type Glucometer Dex Diabetes System Kit 1 ea miscellaneous DAILY 12/01/21 02/28/23 History Insulin Syringe-Needle U100 12/01/21 02/28/23 History acetaminophen 325 mg tablet 325 mg PO Q4H PRN fever or pain 12/01/21 03/14/23 History aspirin 81 mg tablet,delayed 81 mg PO DAILY 12/01/21 03/14/23 History release (Adult Low Dose Aspirin) blood sugar diagnostic (OneTouch 12/01/21 02/28/23 History Verio test strips) cyanocobalamin (vitamin B-12) 2,000 mcg PO DAILY 12/01/21 03/14/23 History 1,000 mcg tablet lancing device 12/01/21 02/28/23 History multivitamin (One Daily 1 tab PO DAILY 12/01/21 03/14/23 History Multivitamin tablet) atorvastatin 40 mg tablet 40 mg PO DAILY #90 tabs 11/29/22 03/14/23 Rx levothyroxine 150 mcg tablet 150 mcg PO DAILY #90 tabs 11/29/22 03/14/23 Rx omeprazole 40 mg capsule,delayed 40 mg PO BID #60 caps 11/29/22 03/14/23 Rx release insulin human U-100 NPH-regulr See Rx Instructions SUBCUT BID #45 02/28/23 03/14/23 Rx 70-30 mix 100 unit/mL subcutaneous mL susp (Humulin 70/30 U-100 Insulin) insulin lispro 100 unit/mL 15 unit (0.15 mL) SUBCUT TID PRN 02/28/23 03/14/23 Rx subcutaneous solution hyperglycemia #30 mL losartan 25 mg tablet 25 mg PO DAILY #90 tabs 02/28/23 03/14/23 Rx sumatriptan succinate 50 mg tablet See Rx Instructions PO .COMPLEX 02/28/23 03/14/23 Rx #10 tabs Allergies Allergy/AdvReac Type Severity Reaction Status Date / Time No Known Drug Allergies Allergy Verified 03/14/23 08:39 Exam Vital Signs (past 8 hours): - 03/14/23 08:44 Temperature 97.9 F Pulse Rate 74 Respiratory Rate 20 Blood Pressure 145/78 H Pulse Oximetry 97 Oxygen Delivery Method Room Air Oxygen Delivery Method Room Air Const General: No acute distress Assessment & Plan Assessment and plan (1) Colon cancer screening: Status: Acute Plan We reviewed the risks and benefits of colonoscopy for colon cancer screening and she would like proceed.
--- NOTE | 2023-03-14 10:04 | PM.OP.COLON ---
Operative Date/Time/Diagnoses Date of procedure: 03/14/23 Time of procedure: 10:04 Pre-op diagnosis: Colon cancer screening Post-op diagnosis: same Procedure & Clinicians Study performed: Colonoscopy Same procedure as scheduled: Yes Surgeon: Kris Gipson Procedure Notes Procedure in detail: Surgeon: Kris Gipson MD Anesthesia: Dalton Greenberg CRNA Procedure: The patient was brought to the endoscopy suite, placed in left lateral decubitus position. The patient was connected to monitoring devices. A time-out was performed. Sedation was administered. Once the patient was adequately sedated, a digital rectal exam was performed and was normal. The scope was then inserted into the rectum and significant solid stool was seen and photographed. The procedure was aborted. The patient was awakened and brought to recovery. Scope withdrawal time: Not applicable Sedation time: 7 minutes EBL: 0 Findings: Inadequate prep Post-procedure Plan for aftercare: Re-attempt colonoscopy Disposition: PACU
[2023-03-14 10:08] VITALS: BP 115/65; PULSE 64; RESP 13; TEMP 36.3; O2SAT 94
[2023-03-14 10:13] VITALS: BP 112/71; PULSE 65; RESP 16; O2SAT 94
[2023-03-14 10:18] VITALS: BP 112/72; PULSE 77; RESP 14; O2SAT 96
[2023-03-14 10:19] VITALS: BP 127/77; PULSE 69; RESP 20; TEMP 36.1; O2SAT 96
== END 2023-03-14 10:32 | disposition home or self-care (01) ==
PROVIDERS: PCP Internal Medicine; Referring Provider Surgery; Visit Provider Surgery
PROC: 0DJD8ZZ Inspection of Lower Intestinal Tract, Via Natural or Artificial Opening Endoscopic (ICD-10-PCS; CPT 45378; principal; 2023-03-14 09:30)
DX: Z12.11 Encounter for screening for malignant neoplasm of colon (principal); E11.9 Type 2 diabetes mellitus without complications; Z53.8 Procedure and treatment not carried out for other reasons
CPT/HCPCS: G0121; 45378; J2704

== ENCOUNTER 2023-04-04 10:18 | Day surgery (SDC) | payer MEDICARE, SELFPAY ==
--- NOTE | 2023-04-04 | PATH_ITS ---
[facility] Accession Number: [id number] No. of containers..01 Tissue . 01 Material submitted: . cecum - CECAL POLYPS . 01 Diagnosis: Cecum, Polyps: Tubular adenomas. [facility] 04/11/2023 1110 Local . 01 Electronically signed: . Erika Rodrigez MD, Pathologist NPI- [id number] . 01 Gross description: . CECAL POLYPS: Received in formalin are 3 fragment(s) of santana, soft tissue measuring 0.2 x 0.2 x 0.2 cm to 0.4 x 0.2 x 0.2 cm submitted entirely in 1 cassette(s) /REGINALDO 04/09/2023 2219 Local . 01 Pathologist provided ICD-10: D12.0 . 01 CPT . 224097 Specimen Comment: A courtesy copy of this report has been sent to [phone] Performed at: 01 [facility] [address] [place] [address], [place], [place] [id number] MD Antwon Leblanc MD Phone: [phone]
[2023-04-04 10:44] VITALS: BP 155/79; PULSE 70; RESP 16; TEMP 36.2; O2SAT 99; BMI 32.4
[2023-04-04] MEDS: LACTATED RINGERS 1,000 ML 150 ML IV (10:53)
--- NOTE | 2023-04-04 11:04 | P.OP.PRE_ITS ---
Pre-operative Note COVID-19 COVID-19 status: Not tested Interval Note History & Physical reviewed/Exam performed by Physician: Yes Changes to H&P: Yes H&P completed within 30 days and has changed as indicated here:: The patient a ttempted colonoscopy a few weeks ago but prep was inadequate. She has rescheduled and her prep was better this time. ASA Class (for procedural sedation): II
[2023-04-04 12:18] VITALS: BP 88/59; PULSE 63; RESP 17; TEMP 36.5; O2SAT 90
--- NOTE | 2023-04-04 12:19 | PM.OP.COLON ---
Operative Date/Time/Diagnoses Date of procedure: 04/04/23 Time of procedure: 12:19 Pre-op diagnosis: Colon cancer screening Post-op diagnosis: same Procedure & Clinicians Study performed: Colonoscopy Same procedure as scheduled: Yes Surgeon: Kris Gipson Procedure Notes Procedure in detail: Surgeon: Kris Gipson MD Anesthesia: Walt Ruiz CRNA Procedure: The patient was brought to the endoscopy suite, placed in left lateral decubitus position. The patient was connected to monitoring devices. A time-out was performed. Sedation was administered. Once the patient was adequately sedated, a digital rectal exam was performed and was normal. The scope was then inserted and advanced to the cecum where the appendiceal orifice was identified and photographed. The scope was then slowly withdrawn over greater than 6 minutes. The mucosa was thoroughly inspected. There was a 5 mm polyp in the cecum removed with a cold snare. The scope was retroflexed in the rectum. No other abnormalities were seen. The scope was straightened and removed. The patient was awakened and brought to recovery. Scope withdrawal time: 11 minutes Sedation time: 25 minutes EBL: 5 mL Findings: 5 mm polyp in the cecum Post-procedure Disposition: PACU
[2023-04-04 12:23] VITALS: BP 116/63; PULSE 75; RESP 16; O2SAT 94
[2023-04-04 12:28] VITALS: BP 120/67; PULSE 67; RESP 17; O2SAT 96
[2023-04-04 12:36] VITALS: BP 118/74; PULSE 70; RESP 18; TEMP 36.2; O2SAT 95
== END 2023-04-04 12:53 | disposition home or self-care (01) ==
PROVIDERS: PCP Internal Medicine; Referring Provider Surgery; Visit Provider Surgery
PROC: 0DJD8ZZ Inspection of Lower Intestinal Tract, Via Natural or Artificial Opening Endoscopic (ICD-10-PCS; CPT 45378; principal; 2023-04-04 13:30)
DX: Z12.11 Encounter for screening for malignant neoplasm of colon (principal); D12.0 Benign neoplasm of cecum
CPT/HCPCS: 45385; J2704

== ENCOUNTER → 2024-07-14 10:11 | Outpatient (CLI) | payer MEDICARE, SELFPAY ==
[2024-07-14 11:45] LABS: Alanine Aminotransferase 17 IU/L (<35); Albumin 4.1 g/dL (3.5-5.0); Albumin Globulin Ratio 1.3 (1.0-2.8); Alkaline Phosphatase 89 U/L (38-126); Aspartate Aminotransferase 23 IU/L (14-36); BUN Creatinine Ratio 15.1 (6-22); Bilirubin Total 0.5 mg/dL (0.2-1.3); Blood Urea Nitrogen 19 mg/dL (7-17); Calcium 9.6 mg/dL (8.4-10.2); Carbon Dioxide 28 mmol/L (22-32); Chloride 98 mmol/L (98-107); Cholesterol 273 mg/dL (140-199); Estimated Glomerular Filt Rate 46 mL/min (>60); Globulin 3.1 g/dL (1.7-4.1); Glucose 170 mg/dL (80-110); HDL Cholesterol 46 mg/dL (40-60); HEMOLYSIS < 15 (0-50); LDL Cholesterol Calculated 189 mg/dL (<100); Potassium 4.2 mmol/L (3.4-5.1); Sodium 134 mmol/L (137-145); Total Protein 7.2 g/dL (6.3-8.2); Triglycerides 190 mg/dL (35-150)
[2024-07-14 11:47] LABS: Hemoglobin A1C% w Est Avg Glu 7.7 % (4.0-6.0)
[2024-07-14 11:58] LABS: Free T4, Direct Thyroxine 0.15 ng/dL (0.78-2.19)
[2024-07-14 12:12] LABS: Thyroid Stimulating Hormone 33.6 uIU/mL (0.47-4.68)
== END ==
LOC: LAB 10:12
PROVIDERS: PCP Internal Medicine; Referring Provider Internal Medicine; Visit Provider Internal Medicine
DX: E11.9 Type 2 diabetes mellitus without complications (principal); Z79.4 Long term (current) use of insulin; E78.2 Mixed hyperlipidemia; E03.9 Hypothyroidism, unspecified; N18.31 Chronic kidney disease, stage 3a
CPT/HCPCS: 36415; 80053; 80061; 82043; 82570; 83036; 84439; 84443

== ENCOUNTER → 2025-06-09 09:00 | Outpatient (CLI) | payer MEDICARE, SELFPAY ==
[2025-06-09 09:58] LABS: Hemoglobin A1C% w Est Avg Glu 8.4 % (4.0-6.0)
[2025-06-09 10:04] LABS: Alanine Aminotransferase 27 IU/L (<35); Albumin 4.2 g/dL (3.5-5.0); Albumin Globulin Ratio 1.3 (1.0-2.8); Alkaline Phosphatase 118 U/L (38-126); Blood Urea Nitrogen 14 mg/dL (7-17); Calcium 9.8 mg/dL (8.4-10.2); Carbon Dioxide 28 mmol/L (22-32); Chloride 102 mmol/L (98-107); Cholesterol 139 mg/dL (140-199); Estimated Glomerular Filt Rate > 60 mL/min (>60); Globulin 3.2 g/dL (1.7-4.1); Glucose 152 mg/dL (70-99); HDL Cholesterol 41 mg/dL (40-60); HEMOLYSIS < 15 (0-50); Potassium 4.9 mmol/L (3.4-5.1); Sodium 139 mmol/L (137-145); Total Protein 7.4 g/dL (6.3-8.2); Triglycerides 140 mg/dL (35-150)
[2025-06-09 10:20] LABS: Free T3, Triiodothyronine Free 3.88 pg/mL (2.77-5.27); Free T4, Direct Thyroxine 1.38 ng/dL (0.78-2.19)
[2025-06-09 10:34] LABS: Thyroid Stimulating Hormone 0.032 uIU/mL (0.47-4.68)
== END ==
PROVIDERS: PCP Internal Medicine; Referring Provider Internal Medicine; Visit Provider Internal Medicine
DX: E11.9 Type 2 diabetes mellitus without complications (principal); Z79.4 Long term (current) use of insulin; N18.31 Chronic kidney disease, stage 3a; E78.2 Mixed hyperlipidemia; E03.9 Hypothyroidism, unspecified
CPT/HCPCS: 36415; 80053; 80061; 83036; 84439; 84443; 84481